=== PATIENT | female | born 1990 | race African-American/Black ===

== ENCOUNTER 2016-11-12 18:53 | Emergency (ER) | payer OTHER ==
[~2016-11-12] VITALS: Ht 154.9 cm; Wt 58.1 kg
[2016-11-12 18:58] VITALS: BP 109/70
[2016-11-12] MEDS ORDERED: NORCO 5-325 TA1 EACH PO (19:12)
== END 2016-11-12 19:59 | disposition home or self-care (01) ==
LOC: ER 18:53
DX: M54.5 Low back pain (principal); V89.2XXA Person injured in unspecified motor-vehicle accident, traffic, initial encounter; Y93.89 Activity, other specified; Y92.89 Other specified places as the place of occurrence of the external cause; Y99.8 Other external cause status